=== PATIENT | male | born 1975 | race Caucasian/White ===

== ENCOUNTER 2020-04-24 19:27 | Inpatient (IN) ==
[2020-04-24] MEDS ORDERED: HYDROmorphone 2 MG/1 ML VIAL IV STA (23:25)
[2020-04-24] MEDS ORDERED: SODIUM CHLORIDE 0.9% 500 ML IV STA (23:25)
[2020-04-24] MEDS ORDERED: KETOROLAC 30 MG/1 ML VIAL IV STA (23:25)
[2020-04-24] MEDS ORDERED: PIPERACILLIN/TAZOBACTAM 3,375 MG in SODIUM CHLORIDE 0.9% 100 ML IV STA (23:25)
[2020-04-24] MEDS ORDERED: ONDANSETRON 4 MG/2 ML VIAL IV STA (23:36)
[2020-04-24] MEDS ORDERED: ONDANSETRON 4 MG/2 ML VIAL ONE (23:36)
[2020-04-25 00:06] LABS: Basophils # 0.1 10*3/uL (0.0-0.2); Basophils % 0.4 % (0.0-0.8); Eosinophils # 1.8 10*3/uL (0.0-0.87); Eosinophils % 9.7 % (0.00-10.9); Hematocrit 50.7 VOL% (42.0-52.0); Hemoglobin 16.4 GM/DL (14.0-18.0); Immature Granulocytes % 0.6 %; Immature Granulocytes Absolute 0.11 #; Lymphocytes # 0.7 10*3/uL (1.4-4.0); Lymphocytes % 3.6 % (21.2-54.2); Mean Corpuscular HGB Conc 32.3 GM/DL (32-36); Mean Corpuscular Volume 85.5 FL (87-102); Mean Platelet Volume 9.8 FL (9.6-12.0); Monocytes % 7.8 % (1.7-12.7); Neutrophils % 77.9 % (38.7-73.9); Platelet Count 304 T/CUMM (130-400); Red Blood Count 5.93 MC/CUMM (3.8-5.5); Red Cell Distribution Width 14.2 % (9.3-17.3); White Blood Count 18.2 T/CUMM (4-12)
[2020-04-25 00:30] LABS: Albumin 3.6 G/DL (3.4-5.0); Bilirubin,Total 0.7 MG/DL (0.2-1.0); Calcium 9.4 MG/DL (8.5-10.1); Osmolality,Calculated 268.8 MOS/KG (273-304); Potassium 4.3 MMOL/L (3.5-5.1); Total Protein 9.3 G/DL (6.4-8.3)
[2020-04-25] MEDS ORDERED: GLUCAGON 1 MG VIAL IM PRN ×3 (03:16→13:19)
[2020-04-25] MEDS ORDERED: ACETAMINOPHEN 325 MG TABLET PO PRN (03:16)
[2020-04-25] MEDS ORDERED: PROMETHAZINE 25 MG/1 ML VIAL IM PRN (03:16)
[2020-04-25] MEDS ORDERED: DEXTROSE 50% 25 GM/50 ML VIAL IV PRN ×3 (03:16→13:19)
[2020-04-25] MEDS ORDERED: ONDANSETRON 4 MG/2 ML VIAL IV PRN (03:16)
[2020-04-25 04:13] LABS: Hypochromasia 1+; Lymphocytes 5 % (20-55); Microcytosis 1+; Segmented Neutrophils 84 % (50-85); Total Cells Counted 100
[2020-04-25] MEDS: INSULIN REGULAR 100 UNIT/ML SUBCUT SCH ×3 (05:12→19:46)
[2020-04-25] MEDS ORDERED: CLINDAMYCIN INJ 600 MG in PREMIX 1 EACH IV ONE (07:42)
[2020-04-25] MEDS: PIPERACILLIN/TAZOBACTAM 3,375 MG in SODIUM CHLORIDE 0.9% 100 ML IV SCH (10:04)
[2020-04-25] MEDS ORDERED: fentaNYL 100 MCG/2 ML VIAL ONE ×2 (12:03→13:08)
[2020-04-25] MEDS ORDERED: MIDAZOLAM 2 MG/2 ML VIAL ONE (12:03)
[2020-04-25] MEDS ORDERED: LIDOCAINE 2% 5 ML VIAL ONE (13:01)
[2020-04-25] MEDS ORDERED: ONDANSETRON 4 MG/2 ML VIAL ONE (13:01)
[2020-04-25] MEDS ORDERED: propofoL 200 MG/20 ML VIAL IV ONE (13:01)
[2020-04-25] MEDS ORDERED: ROCURONIUM 50 MG/5 ML VIAL IV ONE (13:01)
[2020-04-25] MEDS ORDERED: SUCCINYLCHOLINE 200 MG/10 ML VIAL ONE (13:01)
[2020-04-25] MEDS ORDERED: SEVOFLURANE 1 UNIT/15 MINUTE INH ONE (13:17)
[2020-04-25] MEDS ORDERED: oxyCODONE/ACETAMINOPHEN 5-325 MG TABLET PO PRN (14:40)
[2020-04-25] MEDS: SERTRALINE 100 MG TABLET PO SCH (20:40)
[2020-04-26] MEDS: INSULIN REGULAR 100 UNIT/ML SUBCUT SCH ×5 (00:35→23:45)
[2020-04-26] MEDS: SODIUM CHLORIDE 0.9% 1,000 ML IV SCH ×2 (00:38→00:39)
[2020-04-26] MEDS: PIPERACILLIN/TAZOBACTAM 3,375 MG in SODIUM CHLORIDE 0.9% 100 ML IV SCH ×3 (00:39→21:02)
[2020-04-26 06:42] LABS: Basophils % 0.2 % (0.0-0.8); Eosinophils % 0.2 % (0.00-10.9); Hematocrit 42.7 VOL% (42.0-52.0); Immature Granulocytes % 0.5 %; Immature Granulocytes Absolute 0.05 #; Lymphocytes # 1.1 10*3/uL (1.4-4.0); Lymphocytes % 10.2 % (21.2-54.2); Mean Corpuscular HGB Conc 33.3 GM/DL (32-36); Mean Corpuscular Volume 83.7 FL (87-102); Mean Platelet Volume 9.6 FL (9.6-12.0); Monocytes % 8.4 % (1.7-12.7); Neutrophils % 80.5 % (38.7-73.9); Platelet Count 271 T/CUMM (130-400); Red Cell Distribution Width 14.6 % (9.3-17.3)
[2020-04-26 06:49] LABS: Hemoglobin 14.2 GM/DL (14.0-18.0)
[2020-04-26 06:51] LABS: Calcium 8.4 MG/DL (8.5-10.1); Osmolality,Calculated 276.8 MOS/KG (273-304); Potassium 3.7 MMOL/L (3.5-5.1)
[2020-04-26] MEDS: SERTRALINE 100 MG TABLET PO SCH ×2 (10:10→21:02)
[2020-04-26] MEDS ORDERED: propofoL 200 MG/20 ML VIAL IV ONE (12:37)
[2020-04-26] MEDS ORDERED: MIDAZOLAM 2 MG/2 ML VIAL ONE (12:37)
[2020-04-26] MEDS ORDERED: LIDOCAINE 2% 5 ML VIAL ONE (12:37)
[2020-04-26] MEDS ORDERED: ROCURONIUM 50 MG/5 ML VIAL IV ONE (12:37)
[2020-04-26] MEDS ORDERED: fentaNYL 100 MCG/2 ML VIAL ONE (12:37)
[2020-04-26] MEDS ORDERED: ONDANSETRON 4 MG/2 ML VIAL ONE (13:00)
[2020-04-26] MEDS ORDERED: SEVOFLURANE 1 UNIT/15 MINUTE INH ONE (13:00)
[2020-04-26] MEDS ORDERED: SUGAMMADEX 200 MG/2 ML VIAL IV ONE (13:14)
[2020-04-26] MEDS ORDERED: VANCOMYCIN INJ 1,250 MG in SODIUM CHLORIDE 0.9% 250 ML IV SCH (13:30)
[2020-04-26] MEDS ORDERED: ONDANSETRON 4 MG/2 ML VIAL IV PRN (13:34)
[2020-04-26] MEDS: HYDROmorphone 2 MG/1 ML VIAL IV PRN ×2 (13:41→13:55)
[2020-04-26] MEDS: VANCOMYCIN INJ 2,000 MG in SODIUM CHLORIDE 0.9% 500 ML IV SCH (16:07)
[2020-04-27] MEDS: VANCOMYCIN INJ 2,000 MG in SODIUM CHLORIDE 0.9% 500 ML IV SCH ×2 (01:36→15:13)
[2020-04-27 05:56] LABS: Basophils % 0.2 % (0.0-0.8); Eosinophils # 0.1 10*3/uL (0.0-0.87); Eosinophils % 0.7 % (0.00-10.9); Hematocrit 39.1 VOL% (42.0-52.0); Immature Granulocytes % 0.3 %; Immature Granulocytes Absolute 0.03 #; Lymphocytes # 1.4 10*3/uL (1.4-4.0); Lymphocytes % 15.8 % (21.2-54.2); Mean Corpuscular HGB Conc 33.2 GM/DL (32-36); Mean Corpuscular Volume 83.5 FL (87-102); Mean Platelet Volume 9.3 FL (9.6-12.0); Monocytes % 8.8 % (1.7-12.7); Neutrophils % 74.2 % (38.7-73.9); Platelet Count 269 T/CUMM (130-400); Red Blood Count 4.68 MC/CUMM (3.8-5.5); Red Cell Distribution Width 14.5 % (9.3-17.3); White Blood Count 9.1 T/CUMM (4-12)
[2020-04-27] MEDS: INSULIN REGULAR 100 UNIT/ML SUBCUT SCH ×3 (06:11→17:05)
[2020-04-27] MEDS: PIPERACILLIN/TAZOBACTAM 3,375 MG in SODIUM CHLORIDE 0.9% 100 ML IV SCH ×2 (06:11→21:12)
[2020-04-27 06:16] LABS: Eosinophils 1 % (0-10); Lymphocytes 19 % (20-55); Platelet Estimate Adequate; Segmented Neutrophils 74 % (50-85); Total Cells Counted 100
[2020-04-27 06:17] LABS: Hypochromasia Slight; Microcytosis Slight
[2020-04-27 06:23] LABS: Osmolality,Calculated 280.5 MOS/KG (273-304); Potassium 3.6 MMOL/L (3.5-5.1)
[2020-04-27] MEDS: HYDROmorphone 2 MG/1 ML VIAL IV PRN (07:40)
[2020-04-27] MEDS: SERTRALINE 100 MG TABLET PO SCH ×2 (08:29→21:13)
[2020-04-27] MEDS: SODIUM CHLORIDE 0.9% 1,000 ML IV SCH (10:09)
[2020-04-27] MEDS ORDERED: NON-FORMULARY MEDICATION (Empagliflozin [Jardiance] 10 mg Tablet) PO SCH (21:00)
[2020-04-27] MEDS: metFORMIN 500 MG TABLET PO SCH (21:13)
[2020-04-28] MEDS: INSULIN REGULAR 100 UNIT/ML SUBCUT SCH ×4 (00:25→17:36)
[2020-04-28] MEDS: VANCOMYCIN INJ 2,000 MG in SODIUM CHLORIDE 0.9% 500 ML IV SCH ×2 (02:08→15:12)
[2020-04-28 05:43] LABS: Basophils # 0.1 10*3/uL (0.0-0.2); Basophils % 0.6 % (0.0-0.8); Eosinophils # 0.1 10*3/uL (0.0-0.87); Eosinophils % 1.6 % (0.00-10.9); Hematocrit 38.3 VOL% (42.0-52.0); Immature Granulocytes % 0.5 %; Immature Granulocytes Absolute 0.04 #; Lymphocytes # 1.9 10*3/uL (1.4-4.0); Lymphocytes % 23.9 % (21.2-54.2); Mean Corpuscular HGB Conc 33.9 GM/DL (32-36); Mean Platelet Volume 9.3 FL (9.6-12.0); Monocytes % 8.9 % (1.7-12.7); Neutrophils % 64.5 % (38.7-73.9); Platelet Count 256 T/CUMM (130-400); Red Blood Count 4.67 MC/CUMM (3.8-5.5); Red Cell Distribution Width 14.4 % (9.3-17.3)
[2020-04-28] MEDS: PIPERACILLIN/TAZOBACTAM 3,375 MG in SODIUM CHLORIDE 0.9% 100 ML IV SCH ×2 (06:01→10:21)
[2020-04-28 06:04] LABS: Calcium 8.1 MG/DL (8.5-10.1); Osmolality,Calculated 277.7 MOS/KG (273-304); Potassium 3.4 MMOL/L (3.5-5.1)
[2020-04-28 06:13] LABS: Hypochromasia 1+; Lymphocytes 22 % (20-55); Microcytosis 1+; Ovalocytes Slight; Platelet Estimate Adequate; Segmented Neutrophils 74 % (50-85); Total Cells Counted 100
[2020-04-28] MEDS ORDERED: POTASSIUM CHLORIDE 20 MEQ TABLET PO ONE (07:30)
[2020-04-28] MEDS: metFORMIN 500 MG TABLET PO SCH (08:58)
[2020-04-28] MEDS: SERTRALINE 100 MG TABLET PO SCH (08:58)
[2020-04-28] MEDS: HYDROmorphone 2 MG/1 ML VIAL IV PRN (09:23)
[2020-04-28 15:36] VITALS: BP 147/78
== END 2020-04-28 18:59 | disposition home health service (06) | DRG 717 ==
LOC: N.ED 19:27 → N.EDINP 19:27 → N.3E 04-25 01:01 → SUATTDRO 04-25 13:18
PROVIDERS: ADMIT Surgery; ATTEND Surgery